=== PATIENT | female | born 1970 | race Caucasian/White ===

== ENCOUNTER 2020-06-28 09:35 | Emergency (ER) | payer BC ==
[2020-06-28 09:41] VITALS: BP 169/88
--- NOTE | 2020-06-28 11:26 | ER Document Report ---
ED Headache - General Chief Complaint: Headache, Worst Ever Stated Complaint: HEADACHE Time Seen by Provider: 06/28/20 11:09 Primary Care Provider: GWYN BARRIENTOS PA [Primary Care Provider] - Follow up as needed Notes: CHIEF COMPLAINT: Posterior headache this morning HPI: 49-year-old female who is reasonably healthy presenting for posterior headache that she woke up with this morning. States that she had 2-3 episodes of vomiting with it. Took ibuprofen and the headache completely resolved. No weakness numbness or tingling in the extremities. No vision changes. No prior history of similar headaches. Has had pseudotumor cerebri in the past, states she had an LP to relieve the pressure 2 years ago and has not had those types of headaches and states this was different. Has not had fever or other recent illness. Reports no definite family history of aneurysm ROS: See HPI - all other systems were reviewed and are otherwise negative Constitutional: no fever Eyes: no drainage, no blurred vision ENT: no runny nose, no sore throat Cardiovascular: no chest pain Resp: no SOB, no cough GI: no vomiting, no diarrhea, no abdominal pain : no dysuria Integumentary: no rash Allergy: no hives Musculoskeletal: no extremity pain or swelling Neurological: no numbness/tingling, no weakness, positive headache MEDICATIONS: I agree with the patient medications as charted by the RN. ALLERGIES: I agree with the allergies as charted by the RN. PAST MEDICAL HISTORY/PAST SURGICAL HISTORY: Reviewed and agree as charted by RN. SOCIAL HISTORY: Reviewed and agree as charted by RN. FAMILY HISTORY: No significant familial comorbid conditions directly related to patient complaint EXAM: Reviewed vital signs as charted by RN. CONSTITUTIONAL: Alert and oriented and responds appropriately to questions. Well-appearing; well-nourished HEAD: Normocephalic; atraumatic EYES: PERRL; Conjunctivae clear, sclerae non-icteric ENT: normal nose; no rhinorrhea; moist mucous membranes; pharynx without lesions noted, no uvula edema or deviation, no tonsillar hypertrophy, phonation normal NECK: Supple without meningismus; non-tender; no cervical lymphadenopathy, no masses CARD: RRR; no murmurs, no clicks, no rubs, no gallops; symmetric distal pulses RESP: Normal chest excursion without splinting or tachypnea; breath sounds clear and equal bilaterally; no wheezes, no rhonchi, no rales, pulse oximetry ABD/GI: Normal bowel sounds; non-distended; soft, non-tender, no rebound, no guarding; no palpable organomegaly or masses. BACK: The back appears normal and is non-tender to palpation, there is no CVA tenderness EXT: Normal ROM in all joints; non-tender to palpation; no cyanosis, no effusions, no edema SKIN: Normal color for age and race; warm; dry; good turgor; no acute lesions noted NEURO: Moves all extremities equally; Motor and sensory function intact. Face symmetric. Tongue protrudes midline. Extraocular motions intact. Pupils are 2 mm and equally reactive. Normal speech, normal gait. 5 out of 5 strength in both the distal and proximal upper and lower extremities bilaterally. Sensation is grossly intact throughout. Finger to nose testing normal. Pronator drift normal. PSYCH: The patient's mood and manner are appropriate. Grooming and personal hygiene are appropriate. MDM: 49-year-old female with a posterior headache slightly into the posterior neck that she woke up with this morning. Was slightly worse with laying down had several episodes of nausea vomiting. There is no family history of aneurysm definitively. I spoke with the patient at length, her headache completely resolved after ibuprofen. We discussed the differentials which would include atypical migraine, headache from musculoskeletal issue, aneurysm. I did offer further work-up including lab work and CT and CTA imaging to evaluate for possible aneurysm. Patient declines at this time aware that we cannot rule these out. She states she will follow up with her primary care provider for further evaluation if the headache recurs she will return for reevaluation. - Related Data Allergies/Adverse Reactions: No Known Allergies Allergy (Unverified 06/28/20 11:23) Home Medications: Lexapro Past Medical History - Social History Smoking Status: Never Smoker Drug Abuse: Marijuana Family History: Reviewed & Not Pertinent Psychiatric Medical History: Reports: Hx Attention Deficit Hyperactivity Disorder Past Surgical History: Reports: Hx Hysterectomy Physical Exam - Vital signs Vitals: Temp Pulse Resp BP Pulse Ox 98.0 F 70 16 169/88 H 99 06/28/20 09:39 06/28/20 09:39 06/28/20 09:39 06/28/20 09:39 06/28/20 09:39 Course - Vital Signs Vital signs: Temp Pulse Resp BP Pulse Ox 98.0 F 70 16 169/88 H 99 06/28/20 09:39 06/28/20 09:39 06/28/20 09:39 06/28/20 09:39 06/28/20 09:39 Discharge - Discharge Clinical Impression: Headache Qualifiers: Headache type: unspecified Headache chronicity pattern: acute headache Intractability: not intractable Qualified Code(s): R51.9 - Headache, unspecified Condition: Stable Disposition: HOME, SELF-CARE Additional Instructions: Follow-up with your primary care provider for further evaluation of your headache. If you have recurrent headache please return for reevaluation. You declined further work-up or imaging at this time Referrals: GWYN BARRIENTOS PA [Primary Care Provider] - Follow up as needed
== END 2020-06-28 11:31 | disposition home or self-care (01) ==
LOC: ER 09:35
DX: R51.9 Headache, unspecified (principal); Z90.710 Acquired absence of both cervix and uterus
CPT/HCPCS: 99282